=== PATIENT | male | born 1960 | race African-American/Black ===

== ENCOUNTER 2024-07-28 16:03 | Outpatient (CLI) | payer OTHER, SELFPAY ==
--- NOTE | ~2024-07-28 | US_ITS ---
EXAMINATION: US scrotum doppler DATE: 07/28/2024 17:15 INDICATION: Right-sided hydrocele. TECHNIQUE: Grayscale and Doppler ultrasound images of the testes were obtained. COMPARISON: None. FINDINGS: The right testis measures 5.1 x 3.2 x 4.2 cm. The left testis measures 6.0 x 2.7 x 2.9 cm. There is normal vascular flow to both testes. The right epididymis demonstrates a 2 mm cyst. There is a 7.8 cm cyst adjacent to the right testis. The left epididymis demonstrates multiple cysts measurin g up to 2.1 cm. There is no hydrocele. IMPRESSION: 1. 7.8 cm cyst adjacent to the right testis that may arise from the epididymis. Reviewed, dictated and finalized at location A. IMPRESSION: 1. 7.8 cm cyst adjacent to the right testis that may arise from the epididymis .
== END 2024-07-28 16:04 | disposition home or self-care (01) ==
LOC: ANHIMG 16:08
PROVIDERS: Visit Provider Urology
DX: N50.3 Cyst of epididymis (principal)
CPT/HCPCS: 76870; 93976

== ENCOUNTER 2024-08-19 12:32 | Outpatient (CLI) | payer OTHER, SELFPAY ==
--- NOTE | 2024-08-19 15:22 | ECG_ITS ---
Test Date: 2024-08-19 15:35:31 Measurements Intervals [place] Rate: 91 P: 56 HI: 188 QRS: -16 QRSD: 97 T: 26 QT: 340 QTc: 420 Interpretive Statements SINUS RHYTHM BORDERLINE R WAVE PROGRESSION, ANTERIOR LEADS BASELINE ARTIFACT- I, II, AVR, AVL, AVF BORDERLINE ECG No previous ECG available for comparison Electronically Signed On 08-19-2024 15:38:51 VEHICLE SERVICE ATTENDANT by Francisco Singh D.O.
== END 2024-08-19 12:33 | disposition home or self-care (01) ==
PROVIDERS: PCP Family Medicine; Visit Provider Urology
DX: Z01.810 Encounter for preprocedural cardiovascular examination (principal); R94.31 Abnormal electrocardiogram [ECG] [EKG]; E78.00 Pure hypercholesterolemia, unspecified
CPT/HCPCS: 93005

== ENCOUNTER 2024-08-24 00:28 | Day surgery (SDC) | payer OTHER, SELFPAY ==
--- NOTE | 2024-08-17 13:10 | PC.NURSE ---
Report to the Outpatient Waiting Room, entrance under the green pavilion located off [facility], at time _9:45 AM on date 08/24/24 . Planned Procedure Time: _11:45 AM .? Time changes happen often and if your time is changed the preop area will call you the afternoon before. - You and your visitor will be asked to self-screen and do not enter if you have any COVID symptoms. Please call surgeon if you need to reschedule. - A mask is optional within the hospital at this time. Patients may have clear liquids (water, carbonated beverages, clear teas, apple juice) until 3 hours prior to surgery( 8:45 AM) with a maximum of 20 ounces. - No food from midnight until time of surgery and no smoking - Infants may have breast milk until 4 hours before surgery, formula 6 hours prior to surgery. - Children will be allowed to drink immediately following surgery.? If applicable, please bring a bottle or sippy cup to assist with drinking. Juice, water, soda, and popsicles are readily available.? For infants on formula, please bring formula the day of surgery.? Pacifiers are allowed. Take only the following medications with a SIP of water on the morning of surgery: _INHALER,ACYCLOVIR,,HYDROCODONE IF NEEDED FOR PAIN DO NOT STOP ANY OF YOUR OTHER PRESCRIPTION MEDICATIONS PRIOR TO SURGERY EXCEPT THE FOLLOWING Medications to discontinue per physician NONE Please no make-up, nail yi, hairspray, perfume, deodorant, or body powder the day of surgery.? No jewelry (including any body piercings) or valuables the day of surgery, leave them at home.? Please take a shower or bath the night before, or the morning of, surgery with an antibacterial soap.? Wear comfortable, loose fitting clothing.? Children are encouraged to wear pajamas. - Jewelry must be removed prior to entering the operating room.? Rings and piercings that are not removed may be cut off. - The hospital will not accept responsibility for valuables.? - Please leave all valuables, including medications, at home the day of surgery. If you are going home after surgery, a licensed haul driver must drive you home.? - NO public transportation without another adult if you receive anesthesia. - We recommend that an adult stay with you for 24 hours following discharge. - We also recommend that you do not drive, make important decision, drink alcoholic beverages, or take any drugs that were not prescribed by your health care provider for at least 24 hours after your discharge time. Follow any additional instructions given to you from your surgeon. Telephone instructions given to _PATIENT and asked if any additional questions and then verbalized understanding. Patient advised to call surgeon office or pre surgery nurse liaison [phone] if any additional questions.
[2024-08-17 13:20] VITALS: BMI 33.3
--- NOTE | 2024-08-23 16:19 | WPDANESEPPF ---
Anes - Initial Pre Proc Eval Procedure: Operation Date: 08/24/24 11:45 Proposed Procedures p Right Hydrocelectomy with Orchiopexy - Bj Alanis MD Date/Time: 08/23/24 16:19 Surgeon: Bj Alanis MD Pre Op Diagnosis: hydrocele Patient Data Age: 63 Gender: M Height: 1.85 m Weight: 114.8 kg Allergies Allergy/AdvReac Type Severity Reaction Status Date / Time No Known Allergies Allergy Verified 08/17/24 13:00 Home Medications Medication Instructions Recorded Confirmed Type acyclovir 800 mg tablet 800 mg PO DAILY 08/17/24 08/17/24 History atorvastatin 40 mg tablet 40 mg PO DAILY 08/17/24 08/17/24 History bictegravir 50 mg-emtricitabine 1 tablet PO DAILY 08/17/24 08/17/24 History 200 mg-tenofovir alafenam 25 mg tablet (Biktarvy) budesonide-formoterol HFA 160 2 puff inhalation BID 08/17/24 08/17/24 History mcg-4.5 mcg/actuation aerosol inhaler finasteride 5 mg tablet 5 mg PO DAILY 08/17/24 08/17/24 History hydrocodone 10 mg-acetaminophen 1 tablet PO PRN PRN Pain 08/17/24 08/17/24 History 325 mg tablet omeprazole 40 mg capsule,delayed 40 mg PO DAILY 08/17/24 08/17/24 History release tamsulosin 0.4 mg capsule 0.4 mg PO DAILY 08/17/24 08/17/24 History Patient hx anesthesia problems: none Family hx anesthesia problems: none Results Review: All pre-operative results and documents have been reviewed as part of the pre-operative evaluation. FORMERLY [facility], [facility]–1983 Social History Social History Smoking packs per day: 1 Smoking cigarettes per day: 20.0 Years smoked: 30 Smoking pack-years: 30.00 Smoking status: Current every day smoker Tobacco type: cigarettes Alcohol intake: current Alcohol use details: 3 DRINKS PER MONTH Living arrangements: with family Spiritual care concerns: No Anes - Eval Final PreProcedure Day of Procedure 08/23/24 16:19 Patient weight: obese ASA classification: III Emergent: no Anesthetic plan: proceed Anesthesia type and monitoring: general LMA and standard monitoring Results Review: All pre-operative results and documents have been reviewed as part of the pre-operative evaluation. Informed Consent: The patient's anesthetic plan and its attendant risks and benefits were discussed with the patient/family/POA. Questions were solicited and answers provided to the satisfaction of the patient/family/POA.
[2024-08-24] VITALS (11 sets, daily range): BP systolic 100–135; BP diastolic 66–85; PULSE 62–93; RESP 16; TEMP 36.2–36.6; O2SAT 96–100
[2024-08-24] MEDS: LACTATED RINGERS 1,000 ML 30 ML IV CONT (10:10)
--- NOTE | 2024-08-24 10:47 | PM.IMHP ---
H&P: HPI History of Present Illness Date/Time: 08/24/24 10:47 Chief Complaint: Right hydrocele Narrative: 63-year-old male presents for right hydrocelectomy. Review of Systems Review of Systems: All systems reviewed & are unremarkable except as noted in HPI and below PMFSH Social History Social History Smoking packs per day: 1 Smoking cigarettes per day: 20.0 Years smoked: 30 Smoking pack-years: 30.00 Smoking status: Current every day smoker Tobacco type: cigarettes Alcohol intake: current Alcohol use details: 3 DRINKS PER MONTH Living arrangements: with family Spiritual care concerns: No Meds Home Medications and Allergies Home Medications Medication Instructions Recorded Confirmed Type acyclovir 800 mg tablet 800 mg PO DAILY 08/17/24 08/24/24 History atorvastatin 40 mg tablet 40 mg PO DAILY 08/17/24 08/24/24 History bictegravir 50 mg-emtricitabine 1 tablet PO DAILY 08/17/24 08/24/24 History 200 mg-tenofovir alafenam 25 mg tablet (Biktarvy) budesonide-formoterol HFA 160 2 puff inhalation BID 08/17/24 08/24/24 History mcg-4.5 mcg/actuation aerosol inhaler finasteride 5 mg tablet 5 mg PO DAILY 08/17/24 08/24/24 History hydrocodone 10 mg-acetaminophen 1 tablet PO PRN PRN Pain 08/17/24 08/24/24 History 325 mg tablet omeprazole 40 mg capsule,delayed 40 mg PO DAILY 08/17/24 08/24/24 History release tamsulosin 0.4 mg capsule 0.4 mg PO DAILY 08/17/24 08/24/24 History Allergies Allergy/AdvReac Type Severity Reaction Status Date / Time No Known Allergies Allergy Verified 08/17/24 13:00 Exam Const: General: cooperative, healthy appearing and comfortable Resp: Effort & Inspection: normal respiratory effort Cardio: Rate: regular rate Rhythm: regular rhythm : Scrotum: Spermatocele present (Large right hydrocele/spermatocele) on the right Assessment and Plan Assessment and plan (1) Right hydrocele: Code(s): N43.3 - Hydrocele, unspecified Status: Acute Assessment and Plan: Proceed with right hydrocelectomy, right orchiopexy
--- NOTE | 2024-08-24 10:49 | SUR.PREOP ---
PT MADE AWARE CASE DELAY BY 1HR. COMFORT MEASURES GIVEN.
--- NOTE | 2024-08-24 12:42 | WPDHPUPDATE1 ---
History and Physical Update Update Date/Time: 08/24/24 12:42 History and Physical has been reviewed, including an updated exam of the patient. There are NO changes in the patient's condition. Risks, benefits, and alternatives have been discussed and questions answered. Patient agrees to proceed with procedure.
--- NOTE | 2024-08-24 12:42 | WPDANESEPPF ---
Anes - Initial Pre Proc Eval Procedure: Operation Date: 08/24/24 11:45 Proposed Procedures p Right Hydrocelectomy with Orchiopexy - Bj Alanis MD Date/Time: 08/24/24 12:42 Surgeon: Bj Alanis MD Pre Op Diagnosis: hydrocele Patient Data Age: 63 Gender: M Height: 1.85 m Weight: 109.9 kg Last Vital Signs Temp 97.8 F 08/24/24 10:45 Pulse 78 08/24/24 10:45 Resp 16 08/24/24 10:45 BP 133/84 08/24/24 10:45 Pulse Ox 99 08/24/24 10:45 O2 Del Method Room Air 08/24/24 10:45 Allergies Allergy/AdvReac Type Severity Reaction Status Date / Time No Known Allergies Allergy Verified 08/17/24 13:00 Home Medications Medication Instructions Recorded Confirmed Type acyclovir 800 mg tablet 800 mg PO DAILY 08/17/24 08/24/24 History atorvastatin 40 mg tablet 40 mg PO DAILY 08/17/24 08/24/24 History bictegravir 50 mg-emtricitabine 1 tablet PO DAILY 08/17/24 08/24/24 History 200 mg-tenofovir alafenam 25 mg tablet (Biktarvy) budesonide-formoterol HFA 160 2 puff inhalation BID 08/17/24 08/24/24 History mcg-4.5 mcg/actuation aerosol inhaler finasteride 5 mg tablet 5 mg PO DAILY 08/17/24 08/24/24 History hydrocodone 10 mg-acetaminophen 1 tablet PO PRN PRN Pain 08/17/24 08/24/24 History 325 mg tablet omeprazole 40 mg capsule,delayed 40 mg PO DAILY 08/17/24 08/24/24 History release tamsulosin 0.4 mg capsule 0.4 mg PO DAILY 08/17/24 08/24/24 History Patient hx anesthesia problems: none Family hx anesthesia problems: none Results Review: All pre-operative results and documents have been reviewed as part of the pre-operative evaluation. [facility] Social History Social History Smoking packs per day: 1 Smoking cigarettes per day: 20.0 Years smoked: 30 Smoking pack-years: 30.00 Smoking status: Current every day smoker Tobacco type: cigarettes Alcohol intake: current Alcohol use details: 3 DRINKS PER MONTH Living arrangements: with family Spiritual care concerns: No Anes - Eval Final PreProcedure Day of Procedure 08/24/24 12:42 Patient weight: overweight Heart: regular rate and rhythm Lungs: clear to auscultation Airway: Mallampati scale and special considerations (Missing teeth L upper/lower aspect. ) Neurological: alert and oriented Last oral intake: >/= 8 hours ASA classification: II Emergent: no Anesthetic plan: proceed Anesthesia type and monitoring: general LMA and standard monitoring Results Review: All pre-operative results and documents have been reviewed as part of the pre-operative evaluation. Hyperlipidemia, smoker 1 ppd for 30 years, not this am. Informed Consent: The patient's anesthetic plan and its attendant risks and benefits were discussed with the patient/family/POA. Questions were solicited and answers provided to the satisfaction of the patient/family/POA.
[2024-08-24] MEDS: LIDOCAINE HCL 1% LOCAL INJ 20 ML VIAL 10 ML INFILTRATE (12:45)
[2024-08-24] MEDS: ceFAZolin 2 GM/D5W 50 ML 2 GM/50 ML BAG IVPB (12:45)
[2024-08-24] MEDS: NEOMYCIN/POLYMYXIN/BACITRACIN OINTMENT 15 GM TUBE 1 APPLIC TOPICAL (13:39)
--- NOTE | 2024-08-24 13:42 | W.PM.PROC2 ---
Procedure Note - Detailed Date of Procedure 08/24/24 Pre-op Diagnosis hydrocele Post-op Diagnosis Same (Hydrocele and spermatocele) Procedure Performed Patient was taken the operative suite correctly identified. Once anesthesia was obtained was prepped draped usual sterile fashion. Right trans scrotal incision was made carried down to the tunical layers. The specimen brought on the operative field. Patient had a loculated hydrocele which was excised. The contents were straw-colored fluid. He also had some spermatoceles which were excised. Edges were fulgurated. I then performed an orchiopexy using 3-0 Ethibond in a three-point fixture. Quarter-inch Juliana drain was placed through a separate stab incision. The tunica was then closed using 3-0 chromic in a running fashion. Skin was closed using 3-0 chromic in a running fashion. 1% lidocaine without was used [place] NS that the aging the skin. This patient will be discharged home. Instructed to remove the [place] drain in 2-3 days there was minimal drip. Follow-up in 2-3 weeks with me. This completes dictation. Please send a copy of op note to my office. Surgeon Bj Alanis MD Anesthesia General Description of Procedure See description under procedure performed which was hydrocelectomy, spermatocelectomy, Estimated Blood Loss 5 Drains Yes Packing No Pathology Yes Complications No immediate complications Condition Stable Disposition PACU
[2024-08-24] MEDS: fentaNYL CITRATE INJ (*CRX) 100 MCG/2 ML VIAL 25 MCG IV PUSH ×2 (14:56→15:00)
[2024-08-24] MEDS: oxyCODONE HCL (*CRX) 5 MG TAB IR PO (15:25)
== END 2024-08-24 16:41 | disposition home or self-care (01) ==
PROVIDERS: PCP Family Medicine; Visit Provider Urology
PROC: (CPT 55040; principal; 2024-08-24 11:45)
DX: N43.3 Hydrocele, unspecified (principal); F17.210 Nicotine dependence, cigarettes, uncomplicated; Z79.891 Long term (current) use of opiate analgesic; Z79.51 Long term (current) use of inhaled steroids
CPT/HCPCS: 55040; 54640; 54840; 88302; A9270; J0690; J1100; J2003; J2250; J2371; J2405; J2704; J3010; J7120